=== PATIENT | male | born 1955 | race Caucasian/White ===

== ENCOUNTER 2020-12-25 01:43 | Inpatient (IN) | payer MEDICARE, MEDICAID ==
[~2020-12-25] VITALS: Ht 190.5 cm; Wt 70.0 kg
[2020-12-25 04:01] LABS: BASOPHILS % (AUTO) 0.2 % (0-1); EOSINOPHILS % (AUTO) 0.1 % (0-6); HEMATOCRIT 28.5 % (42.0-52.0); HEMOGLOBIN 9.7 g/dl (14.0-17.9); LYMPHOCYTES # (AUTO) 0.4 X10'3 (1.1-4.8); MEAN CORPUSCULAR HEMOGLOBIN 30.3 PG (27.0-31.0); MEAN CORPUSCULAR HGB CONC 34.1 g/dL (33.0-36.5); MEAN CORPUSCULAR VOLUME 88.8 FL (78-98); MEAN PLATELET VOLUME 7.4 FL (7.4-10.4); MONOCYTES # (AUTO) 0.2 X10'3 (0-0.9); NEUTROPHILS % (AUTO) 91.7 % (42-75); PLATELET COUNT 213 X10'3 (140-440); RED BLOOD COUNT 3.21 X10'6 (4.70-6.10); RED CELL DISTRIBUTION WIDTH 15.4 % (11.5-14.5); WHITE BLOOD COUNT 7.6 X10'3 (4.5-11.0)
[2020-12-25 04:18] LABS: PARTIAL THROMBOPLASTIN TIME 26 SECONDS (22-32)
[2020-12-25 04:21] LABS: ALANINE AMINOTRANSFERASE 10 U/L (12-78); ALBUMIN 3.1 G/DL (3.4-5.0); ALBUMIN/GLOBULIN RATIO 0.9 (1.1-1.5); ALKALINE PHOSPHATASE 32 IU/L (46-116); ANION GAP 16 (8-16); ASPARTATE AMINO TRANSFERASE 10 U/L (10-37); BILIRUBIN,TOTAL 0.5 MG/DL (0.1-1.0); BLOOD UREA NITROGEN 64 MG/DL (7-18); BUN/CREATININE RATIO 17.5 (5.4-32.0); CALCIUM 7.7 MG/DL (8.5-10.1); CHLORIDE 103 MMOL/L (99-107); CREATININE 3.65 MG/DL (0.60-1.10); GLUCOSE 412 MG/DL (70-104); POTASSIUM 4.2 MMOL/L (3.5-5.1); SODIUM 143 MMOL/L (135-145); TOTAL CARBON DIOXIDE 23.7 MMOL/L (24-32); TOTAL PROTEIN 6.7 G/DL (6.4-8.2); eGFR 17 ML/MIN
[2020-12-25] MEDS ORDERED: niCARDipine-NS 40mg/200ml IVPB 200 ML IV SCH (05:15)
[2020-12-25] MEDS ORDERED: AMLO10TA13 PO (05:58)
[2020-12-25] MEDS ORDERED: METO10TA3 PO (05:58)
[2020-12-25] MEDS ORDERED: ONDA8TAB13 PO (05:58)
[2020-12-25] MEDS ORDERED: DULA1.5P SQ (05:58)
[2020-12-25] MEDS ORDERED: CYCL1DRO2 EACHEYE (05:58)
[2020-12-25] MEDS ORDERED: proCHLORperazine 10 MG/2 ml inj IV ONE (06:40)
[2020-12-25] MEDS ORDERED: normal saline 1000ML IV soln IVB ONE (06:40)
[2020-12-25] MEDS ORDERED: magnesium Cl slow-release 64mg tablet PO PRN (07:10)
[2020-12-25] MEDS ORDERED: potassium Cl 20 mEq SR tablet PO PRN ×2 (07:10)
[2020-12-25] MEDS ORDERED: magnesium 2GM in 50ml NS 50 ML IV PRN (07:10)
[2020-12-25] MEDS ORDERED: morphine 2 MG/ML inj. syringe IV PRN (07:10)
[2020-12-25] MEDS ORDERED: ondansetron/PF 4mg/2ml inj IV PRN (07:10)
[2020-12-25] MEDS ORDERED: HYDROcodone/acetaminophen 5mg/325mg tablet PO PRN (07:10)
[2020-12-25] MEDS ORDERED: potassium Cl 40MEQ/1/2NS 520ml 520 ML IV PRN ×2 (07:10)
[2020-12-25] MEDS ORDERED: magnesium 4gm in 100ml NS 100 ML IV PRN (07:10)
[2020-12-25] MEDS ORDERED: acetaminophen 325mg tablet PO PRN (07:10)
[2020-12-25 07:18] LABS: CLARITY,URINE SLIGHTLY CLOUDY (Clear); COLOR,URINE YELLOW (Yellow); GLUCOSE, URINE 250 mg/dl (Neg); KETONES,URINE 40 mg/dl (Neg); LEUKOCYTE ESTERASE ,URINE NEGATIVE (Neg); NITRITES, URINE NEGATIVE (Neg); OCCULT BLOOD,URINE MODERATE (Neg); PROTEIN,URINE >=300 mg/dl (Neg); UROBILINOGEN,URINE 0.2 E.U/dL (0.2-1.0)
[2020-12-25 07:25] LABS: UA COLLECTION TYPE CLN CATCH MIDSTREAM
[2020-12-25 07:28] LABS: MUCUS STRANDS FEW /LPF (Neg); SQUAMOUS EPITHELIAL CELL,UR FEW /LPF (FEW)
[2020-12-25 07:30] LABS: BACTERIA,URINE FEW /HPF (Neg)
--- NOTE | 2020-12-25 07:30 | NUR ---
Patient in ER pending transfer to room PCU 3026R. I have received report from Robles and had the opportunity to ask questions and assume patient care.
[2020-12-25 07:31] LABS: TRANSITIONAL EPI CELLS,URINE FEW /HPF
[2020-12-25 07:33] LABS: RENAL CELLS, URINE FEW /HPF
--- NOTE | 2020-12-25 07:40 | NUR ---
Pt arrived to PCU. pt ambulated to the bed from [facility]. pt shaking, states he is cold. skin hyperpigmentation all extremities. blood sugar checked, 200+. VS stable. skin check revealed only impaired skin integrity to left great toe nail "i dropped a propane tank on it two weeks ago" per pt. Per pt he is diabetic. pt denies pain. no sob. denies nausea at this time. per ER pt awaiting upper GI study, and had bloody emesis this am. Paged Dr. Richey: "PAGER ID: [phone] MESSAGE: Re: Valentina Barr: RM [id number]: Pt arrived to PCU. blood sugar 215, may i start hypo/hyperglycemic protocol? also, protonix gtt not scheduled until 11am? may i start this now? pt with blood in emesis this am per ER. Thanks, Amara #[phone]"
[2020-12-25] MEDS: K and/or MAG REPLACEMENT MC SCH ×2 (08:00→20:00)
--- NOTE | 2020-12-25 08:38 | NUR ---
Dr. Richey called back. new orders to start protonix gtt now and to start ypo/hyperglycemic protocol.
[2020-12-25] MEDS ORDERED: dextrose 50%-water 50ml dispensing syringe IV PRN ×4 (08:40→11:50)
[2020-12-25] MEDS ORDERED: glucagon, human recombinant 1mg kit SUBCUT PRN ×2 (08:40→11:50)
[2020-12-25] MEDS ORDERED: insulin Lispro (HumaLOG) vial - multi-dose SQ SCH ×2 (08:40→11:50)
[2020-12-25] MEDS ORDERED: MESSAGE TO PHARMACY PO ONE ×2 (08:40→11:50)
[2020-12-25] MEDS ORDERED: dextrose ORAL solution 15 GM/59 ML bottle PO PRN ×4 (08:40→11:50)
[2020-12-25 08:46] LABS: ALBUMIN 3.4 G/DL (3.4-5.0); ANION GAP 19 (8-16); BLOOD UREA NITROGEN 63 MG/DL (7-18); BUN/CREATININE RATIO 17.5 (5.4-32.0); CHLORIDE 107 MMOL/L (99-107); GLUCOSE 216 MG/DL (70-104); POTASSIUM 4.1 MMOL/L (3.5-5.1); SODIUM 145 MMOL/L (135-145); TOTAL CARBON DIOXIDE 19.3 MMOL/L (24-32); eGFR 17 ML/MIN
[2020-12-25 08:49] LABS: BASOPHILS % (AUTO) 0.1 % (0-1); EOSINOPHILS % (AUTO) 0 % (0-6); HEMATOCRIT 32.5 % (42.0-52.0); HEMOGLOBIN 10.9 g/dl (14.0-17.9); LYMPHOCYTES # (AUTO) 0.7 X10'3 (1.1-4.8); MEAN CORPUSCULAR HEMOGLOBIN 29.7 PG (27.0-31.0); MEAN CORPUSCULAR HGB CONC 33.5 g/dL (33.0-36.5); MEAN CORPUSCULAR VOLUME 88.8 FL (78-98); MEAN PLATELET VOLUME 7.4 FL (7.4-10.4); MONOCYTES # (AUTO) 0.7 X10'3 (0-0.9); MONOCYTES % (AUTO) 5.8 % (2-12); NEUTROPHILS # (AUTO) 11.6 X10'3 (1.8-7.7); NEUTROPHILS % (AUTO) 89.1 % (42-75); PLATELET COUNT 251 X10'3 (140-440); RED BLOOD COUNT 3.66 X10'6 (4.70-6.10); RED CELL DISTRIBUTION WIDTH 15.4 % (11.5-14.5)
[2020-12-25 09:08] LABS: HEMOGLOBIN A1C 4.7 % (4.5-6.2)
[2020-12-25] MEDS: pantoprazole 40MG/NS 100ML BAG 100 ML IV SCH ×2 (10:13→11:00)
[2020-12-25] MEDS: normal saline 1000ml 1,000 ML IV SCH ×2 (10:54→17:29)
[2020-12-25 11:00] VITALS: BP 176/94
[2020-12-25] MEDS ORDERED: pantoprazole 40MG/NS 100ML BAG 100 ML IV SCH ×2 (11:00)
[2020-12-25] MEDS ORDERED: non-formulary drug (Ondansetron (Ondansetron Odt) 1 TAB) PO PRN (11:50)
[2020-12-25] MEDS ORDERED: metoclopramide 10mg tablet PO SCH (11:50)
[2020-12-25] MEDS ORDERED: Dulaglutide (Trulicity) 1.5 MG) SQ SCH (11:50)
--- NOTE | 2020-12-25 12:12 | NUR ---
Paged Rossi regarding BP and antihypertensive meds. PAGER ID: [phone] MESSAGE: RE: Valentina Barr: [id number]: Per ER, nicardipine drip had been stopped/cancelled. it is still on my AUG now. pt usually takes Norvasc 20 QDAY, but his dosing does not start until tomorrow on the AUG. BP: 176/94. Please advise. -Amara #[phone]
--- NOTE | 2020-12-25 12:23 | NUR ---
Dr Richey called back new orders to d/c hypoglycemic/hyperglycemic protocol due to A1C within normal range, d/c nicardipine drip, and ok to give norvasc starting today to tx mild htn.
[2020-12-25] MEDS: amLODIPine 5mg tablet PO SCH (12:54)
[2020-12-25 13:14] LABS: % IRON SATURATION 30 % (11-46); IRON 59 UG/DL (53-167); TOTAL IRON BINDING CAPACITY 199 UG/DL (259-388)
--- NOTE | 2020-12-25 13:44 | NUR ---
Dr Richey to tele. Dr richey verbalized plan to stop protonix drip, start protonix IV BID, advance pt to [facility] and advance as tolerated if no emesis. Dr. Richey wants records from [facility] from pt's most recent admission and indicated she spoke to Dr. Spear and EGD not indicated at this time.
[2020-12-25 15:00] VITALS: BP 172/88
[2020-12-25 18:00] VITALS: BP 168/91
--- NOTE | 2020-12-25 18:09 | NUR ---
Paged Rossi regarding BP due to no prn noted in orders for hydralazine. new order for hydralazine prn sbp > 160
[2020-12-25] MEDS: hyDRALAzine 10mg tablet PO PRN (18:39)
--- NOTE | 2020-12-25 18:46 | NUR ---
Problems reprioritized. Patient report given, questions answered & plan of care reviewed with Marla MC.
[2020-12-25] MEDS: cycloSPORINE 0.05% ophthalmic emulsion EACHEYE SCH (19:36)
[2020-12-25] MEDS: pantoprazole 40 MG vial IV SCH (19:36)
[2020-12-25] MEDS ORDERED: temazepam 15mg capsule PO PRN (21:00)
[2020-12-25] MEDS ORDERED: insulin glargine (Lantus) pen - multi-dose SQ SCH ×2 (21:00)
[2020-12-26 02:00] VITALS: BP 147/94
[2020-12-26] MEDS: normal saline 1000ml 1,000 ML IV SCH ×2 (03:40→13:10)
--- NOTE | 2020-12-26 06:10 | NUR ---
Problems reprioritized. Patient report given, questions answered & plan of care reviewed with JESUSITA Maloney.
--- NOTE | 2020-12-26 06:31 | NUR ---
Patient in room PCU 3026. I have received report from JESUSITA Gutiérrez and had the opportunity to ask questions and assume patient care.
[2020-12-26 07:00] VITALS: BP 166/99
[2020-12-26 07:15] LABS: BASOPHILS % (AUTO) 0.4 % (0-1); EOSINOPHILS # (AUTO) 0.1 X10'3 (0-0.9); EOSINOPHILS % (AUTO) 1.5 % (0-6); HEMOGLOBIN 10.3 g/dl (14.0-17.9); LYMPHOCYTES % (AUTO) 13.5 % (21-51); MEAN CORPUSCULAR HEMOGLOBIN 30.6 PG (27.0-31.0); MEAN CORPUSCULAR HGB CONC 34.3 g/dL (33.0-36.5); MEAN CORPUSCULAR VOLUME 89.1 FL (78-98); MEAN PLATELET VOLUME 7.3 FL (7.4-10.4); MONOCYTES # (AUTO) 0.6 X10'3 (0-0.9); MONOCYTES % (AUTO) 8.1 % (2-12); NEUTROPHILS # (AUTO) 5.8 X10'3 (1.8-7.7); NEUTROPHILS % (AUTO) 76.5 % (42-75); PLATELET COUNT 209 X10'3 (140-440); RED BLOOD COUNT 3.37 X10'6 (4.70-6.10); RED CELL DISTRIBUTION WIDTH 15.6 % (11.5-14.5); WHITE BLOOD COUNT 7.5 X10'3 (4.5-11.0)
[2020-12-26 07:38] LABS: ALANINE AMINOTRANSFERASE 14 U/L (12-78); ALBUMIN/GLOBULIN RATIO 0.8 (1.1-1.5); ALKALINE PHOSPHATASE 32 IU/L (46-116); ANION GAP 10 (8-16); ASPARTATE AMINO TRANSFERASE 18 U/L (10-37); BILIRUBIN,TOTAL 0.5 MG/DL (0.1-1.0); BLOOD UREA NITROGEN 42 MG/DL (7-18); BUN/CREATININE RATIO 15.1 (5.4-32.0); CHLORIDE 109 MMOL/L (99-107); CREATININE 2.78 MG/DL (0.60-1.10); GLUCOSE 115 MG/DL (70-104); MAGNESIUM 1.8 MG/DL (1.5-2.4); POTASSIUM 3.4 MMOL/L (3.5-5.1); SODIUM 142 MMOL/L (135-145); TOTAL CARBON DIOXIDE 22.6 MMOL/L (24-32); TOTAL PROTEIN 6.6 G/DL (6.4-8.2); eGFR 23 ML/MIN
[2020-12-26] MEDS ORDERED: amLODIPine 5mg tablet PO SCH (08:00)
[2020-12-26] MEDS: K and/or MAG REPLACEMENT MC SCH (08:00)
[2020-12-26] MEDS: amLODIPine 5mg tablet PO SCH (09:35)
[2020-12-26] MEDS: pantoprazole 40 MG vial IV SCH (09:35)
[2020-12-26] MEDS: cycloSPORINE 0.05% ophthalmic emulsion EACHEYE SCH (09:35)
[2020-12-26] MEDS: hyDRALAzine 10mg tablet PO PRN (09:36)
[2020-12-26] MEDS ORDERED: hyDRALAzine tablet PO (09:40)
[2020-12-26] MEDS ORDERED: PANT40TA54 PO (09:40)
[2020-12-26] MEDS ORDERED: pneumococcal 23-VAL P-sac vacc 25 mcg/0.5ml vial IMVAC ONE (10:00)
[2020-12-26 11:00] VITALS: BP 158/94
--- NOTE | 2020-12-26 13:25 | NUR ---
Pt is stable for discharge per MD order. All discharge instructions reviewed with pt and all questions answered. New prescriptions called in to pharmacy [facility] located in [place].The pt is going to follow his next appointment with his physician. PIV discontinued with cannula intact. Notified the teletypesetter operator that pt is being discharged. Belongings collected and sent with pt. Pt walked down to lobby with JESUSITA Maloney and took a ride by private vehicle.
--- NOTE | 2020-12-26 13:26 | NUR ---
[place] documentation: I have reviewed and agree with all interventions, assessments performed and documented by Rosa Mckenzie RN.
--- NOTE | 2020-12-26 14:34 | NUR ---
Malnutrition Consult: Pt admit DX UGIB, anemia, and hx vomiting w/ emesis x15 12/24 per EMR. Pt PO 25-50% avg first two clear liquid meals, has no edema/wounds, normal strength, and no prior scaled wt hx. Likely some wt loss r/t vomiting [employer] though at this time pt lacks minimum two malnutrition criteria. Will monitor for further malnutrition criteria this admit. Addendum: 12/26/20 at [address] Amended: Links added.
== END 2020-12-26 14:50 | disposition home or self-care (01) | DRG 378 ==
LOC: ER 01:44 → EDSEX 01:44 → ED HOLD 07:09 → PCU 3S 07:43
PROVIDERS: ADMIT Internal Medicine; ATTEND Internal Medicine
PROC: 3E0234Z Introduction of Serum, Toxoid and Vaccine into Muscle, Percutaneous Approach (ICD-10-PCS; principal; 2020-12-26)
DX: K92.0 Hematemesis (principal); E87.2 Acidosis; N17.9 Acute kidney failure, unspecified; E11.22 Type 2 diabetes mellitus with diabetic chronic kidney disease; G89.29 Other chronic pain; D63.8 Anemia in other chronic diseases classified elsewhere; I12.9 Hypertensive chronic kidney disease with stage 1 through stage 4 chronic kidney disease, or unspecified chronic kidney disease; I16.0 Hypertensive urgency; N18.9 Chronic kidney disease, unspecified; M54.9 Dorsalgia, unspecified; Z23 Encounter for immunization
CPT/HCPCS: 36415; 80048; 80053; 81001; 82948; 83036; 83540; 83550; 83605; 83735; 85025; 85610; 85730; 86885; 86900; 86901; 87081; 87088; 90732; 93005; 96361; 96365; 96375; 99285; C9113; G0378; J0780; J1815; J7030